=== PATIENT | male | born 1940 | race Caucasian/White ===

== ENCOUNTER 2016-04-20 08:40 | Inpatient (IN) | payer OTHER, BC ==
[~2016-04-20] VITALS: Ht 177.8 cm; Wt 104.8 kg
[2016-04-20] VITALS (15 sets, daily range): BP systolic 104–154; BP diastolic 47–65
[~2016-04-20 08:40] MED LIST: COZAAR25 MG PO; FISH OIL 1,0001 EAC7 PO; FLOMAX0.4 MG PO; FLUOXETINE HCL20 MG PO; GLIPIZIDE XL5 MG PO; JANUVIA25 M1 PO; LEVOCETIRIZINE D5 MG PO; METOPROLOL TART50 MG PO; PANTOPRAZOLE SO40 MG PO; PEPCID20 MG PO; POLY-IRON150 MG PO; PRAVASTATIN SOD80 MG PO; PRESERVISION T1 EACH PO; PROTONIX40 MG PO; REGLAN5 MG PO; TYLENOL WITH C1 EACH PO; ZETIA10 MG PO
[2016-04-20 09:28] LABS: CHLORIDE 107 mEq/L (99-109); POTASSIUM 5.2 mEq/L (3.7-5.4); SODIUM 140 mEq/L (136-147)
[2016-04-20 09:29] LABS: GLUCOSE 254 mg/dL (70-99)
[2016-04-20 09:31] LABS: ANION GAP 11 MEQ/L (2-14)
[2016-04-20 09:33] LABS: GFR ESTIMATE (CALCULATED) 30 mL/min/
[2016-04-20 09:34] LABS: UREA NITROGEN (BUN) 49 mg/dL (9-23)
[2016-04-20 09:41] LABS: TROP-I INTERPRETATION NEGATIVE; TROPONIN-I 0.03 ng/mL (0.0-0.30)
[2016-04-20 09:44] LABS: HEMATOCRIT 18.9 % (38.0-50.0); MCH 26.6 PG (29.0-34.0); MCHC 30.2 G/DL (30.0-36.0); MCV 88.3 FL (86-99); MEAN PLAT.VOLUME 11.1 uM^3 (9.0-12.4); PLATELET COUNT 192 K/uL (156-360); RBC DIS.WIDTH-CV 18.6 % (11.8-14.6); RED BLOOD COUNT 2.14 M/uL (4.00-5.50); WHITE BLOOD COUNT 7.4 K/uL (4.1-10.2)
[2016-04-20] MEDS ORDERED: APRESOLINE10 MG PO (10:46)
[2016-04-20] MEDS ORDERED: ALLOPURINOL100 MG PO (10:49)
[2016-04-20] MEDS ORDERED: COLCHICINE0.6 M1 PO (10:51)
[2016-04-20] MEDS ORDERED: TRESIBA FL100 UNIT/1 SC (10:54)
[2016-04-20] MEDS ORDERED: TYLENOL PM1 CAPLET PO (10:58)
[2016-04-20] MEDS ORDERED: GLIPIZIDE ER2.5 MG PO (11:02)
[2016-04-20] MEDS ORDERED: ALBUTEROL2.5 MG/3 M IH (11:04)
[2016-04-20] MEDS ORDERED: PROAIR HFA8.5 GM IH (11:04)
[2016-04-20 12:30] LABS: POINT-OF-CARE METER ID UU14100415
[2016-04-20 14:03] LABS: HDL CHOLESTEROL 27 MG/DL (Desirable>=40); LDL CHOLESTEROL 46 mg/dL (Desirable<100); NON-HDL CHOLESTEROL 112 mg/dL (Desirable<160); TOTAL CHOLESTEROL 139 mg/dL (Desirable<200); TRIGLYCERIDES 332 MG/DL (Normal: <150)
[2016-04-20 15:42] LABS: HEMATOCRIT 25.7 % (38.0-50.0); MCV 87.7 FL (86-99)
[2016-04-20 16:10] LABS: TROP-I INTERPRETATION NEGATIVE
[2016-04-21 01:35] LABS: HEMATOCRIT 25.4 % (38.0-50.0); MCV 87.9 FL (86-99)
[2016-04-21 04:01] VITALS: BP 128/54
[2016-04-21 07:12] LABS: INTER. NORMALIZED RATIO 1.1; PROTHROMBIN TIME 11.4 (9.2-11.2)
[2016-04-21 07:19] LABS: HEMATOCRIT 25.2 % (38.0-50.0); MCH 27.1 PG (29.0-34.0); MCHC 31.3 G/DL (30.0-36.0); MCV 86.6 FL (86-99); MEAN PLAT.VOLUME 10.8 uM^3 (9.0-12.4); PLATELET COUNT 146 K/uL (156-360); RBC DIS.WIDTH-CV 17.9 % (11.8-14.6); RBC DIS.WIDTH-SD 56.2 % (39-53); RED BLOOD COUNT 2.91 M/uL (4.00-5.50); WHITE BLOOD COUNT 5.9 K/uL (4.1-10.2)
[2016-04-21 07:22] LABS: ANION GAP 7 MEQ/L (2-14); CHLORIDE 104 MEQ/L (99-109); GFR ESTIMATE (CALCULATED) 31 mL/min/; GLUCOSE 146 mg/dL (70-99); POTASSIUM 4.6 MEQ/L (3.7-5.4); SAMPLE HEMOLYSIS CHECK 0; SAMPLE ICTERIC CHECK 0; SAMPLE LIPEMIA CHECK 0; SODIUM 139 MEQ/L (136-147); UREA NITROGEN (BUN) 37 mg/dL (9-23)
[2016-04-21 07:33] VITALS: BP 115/56
[2016-04-21 07:58] LABS: POINT-OF-CARE USER ID ENVKC36
[2016-04-21 11:29] VITALS: BP 111/56
[2016-04-21 11:34] LABS: POINT-OF-CARE METER ID UU13113698; POINT-OF-CARE USER ID ENVKC36
[2016-04-21 16:36] LABS: POINT-OF-CARE METER ID UU13113819
[2016-04-21 17:16] VITALS: BP 134/62
[2016-04-21 19:30] VITALS: BP 149/65
[2016-04-21 21:05] LABS: HEMATOCRIT 28.1 % (38.0-50.0); MCV 87.3 FL (86-99)
[2016-04-21 21:36] LABS: TROP-I INTERPRETATION INDETERMINATE; TROPONIN-I 0.31 ng/mL (0.0-0.30)
[2016-04-21 23:21] VITALS: BP 118/65
[2016-04-22 04:00] VITALS: BP 116/73
[2016-04-22 08:00] VITALS: BP 143/66
[2016-04-22 09:44] LABS: HEMATOCRIT 26.6 % (38.0-50.0); MCH 27.1 PG (29.0-34.0); MCHC 31.6 G/DL (30.0-36.0); MCV 85.8 FL (86-99); PLATELET COUNT 143 K/uL (156-360); RBC DIS.WIDTH-CV 17.8 % (11.8-14.6); RBC DIS.WIDTH-SD 55.4 % (39-53); WHITE BLOOD COUNT 4.4 K/uL (4.1-10.2)
[2016-04-22 09:47] LABS: EOSINOPHIL (%) 3.4 % (0-5); EOSINOPHIL COUNT 0.2 K/uL (0-0.3); IMMATURE GRANULOCYTE (%) 0.7 % (0.0-0.7); LYMPHOCYTE COUNT 0.8 K/uL (1.0-2.8); MONOCYTE (%) 6.6 % (3-12); MONOCYTE COUNT 0.3 K/uL (0-0.8); NEUTROPHIL (%) 70.6 % (45-76); NEUTROPHIL COUNT 3.1 K/uL (1.8-6.4)
[2016-04-22 10:08] LABS: ANION GAP 9 MEQ/L (2-14); CHLORIDE 104 MEQ/L (99-109); GFR ESTIMATE (CALCULATED) 33 mL/min/; GLUCOSE 171 mg/dL (70-99); POTASSIUM 4.8 MEQ/L (3.7-5.4); SAMPLE HEMOLYSIS CHECK 0; SAMPLE ICTERIC CHECK 0; SAMPLE LIPEMIA CHECK 0; SODIUM 138 MEQ/L (136-147); UREA NITROGEN (BUN) 26 mg/dL (9-23)
[2016-04-22 11:30] LABS: POINT-OF-CARE METER ID UU13113698
[2016-04-22 12:00] VITALS: BP 123/60
[2016-04-22 15:34] LABS: POINT-OF-CARE METER ID UU13113694
[2016-04-22 17:39] VITALS: BP 157/70
[2016-04-22 20:07] VITALS: BP 141/65
[2016-04-22 21:35] LABS: POINT-OF-CARE METER ID UU13113781
[2016-04-22 23:55] VITALS: BP 127/60
[2016-04-23 04:00] VITALS: BP 116/57
[2016-04-23 06:39] LABS: HEMATOCRIT 25.6 % (38.0-50.0); MCH 26.7 PG (29.0-34.0); MCHC 30.5 G/DL (30.0-36.0); MCV 87.7 FL (86-99); MEAN PLAT.VOLUME 11.5 uM^3 (9.0-12.4); PLATELET COUNT 147 K/uL (156-360); RBC DIS.WIDTH-CV 17.5 % (11.8-14.6); RBC DIS.WIDTH-SD 55.8 % (39-53); RED BLOOD COUNT 2.92 M/uL (4.00-5.50); WHITE BLOOD COUNT 5.3 K/uL (4.1-10.2)
[2016-04-23 06:58] LABS: EOSINOPHIL (%) 3.6 % (0-5); EOSINOPHIL COUNT 0.2 K/uL (0-0.3); IMMATURE GRANULOCYTE (%) 0.4 % (0.0-0.7); LYMPHOCYTE COUNT 0.9 K/uL (1.0-2.8); MONOCYTE (%) 7.3 % (3-12); MONOCYTE COUNT 0.4 K/uL (0-0.8); NEUTROPHIL (%) 71.9 % (45-76); NEUTROPHIL COUNT 3.8 K/uL (1.8-6.4)
[2016-04-23 07:01] LABS: ANION GAP 9 MEQ/L (2-14); CHLORIDE 109 MEQ/L (99-109); GFR ESTIMATE (CALCULATED) 35 mL/min/; GLUCOSE 133 mg/dL (70-99); POTASSIUM 3.9 MEQ/L (3.7-5.4); SAMPLE HEMOLYSIS CHECK 0; SAMPLE ICTERIC CHECK 0; SAMPLE LIPEMIA CHECK 0; SODIUM 140 MEQ/L (136-147); UREA NITROGEN (BUN) 22 mg/dL (9-23)
[2016-04-23 07:46] LABS: INTACT PARATHYROID HORMONE 121 pg/mL (10-69)
[2016-04-23 07:50] VITALS: BP 128/60
[2016-04-23] MEDS ORDERED: ERGOCALCIF50000 UNIT PO (11:51)
[2016-04-23] MEDS ORDERED: PROTONIX40 MG PO (11:52)
== END 2016-04-23 13:06 | disposition home or self-care (01) | DRG 812 ==
LOC: EME 08:40 → EDOF 10:17 → 4EAST 10:17
PROVIDERS: Internal Medicine; Internal Medicine Gastroenterology; Student in an Organized Health Care Education/Training Program
PROC: 30233N1 Transfusion of Nonautologous Red Blood Cells into Peripheral Vein, Percutaneous Approach (ICD-10-PCS; principal; 2016-04-20)
PROC: 0DB68ZX Excision of Stomach, Via Natural or Artificial Opening Endoscopic, Diagnostic (ICD-10-PCS; 2016-04-21)
PROC: 0DBH8ZX Excision of Cecum, Via Natural or Artificial Opening Endoscopic, Diagnostic (ICD-10-PCS; 2016-04-22)
DX: D62 Acute posthemorrhagic anemia (principal); I24.8 Other forms of acute ischemic heart disease; K92.2 Gastrointestinal hemorrhage, unspecified; N25.81 Secondary hyperparathyroidism of renal origin; F32.9 Major depressive disorder, single episode, unspecified; K21.9 Gastro-esophageal reflux disease without esophagitis; I12.9 Hypertensive chronic kidney disease with stage 1 through stage 4 chronic kidney disease, or unspecified chronic kidney disease; E11.22 Type 2 diabetes mellitus with diabetic chronic kidney disease; N18.3 Chronic kidney disease, stage 3 (moderate); R13.10 Dysphagia, unspecified; R07.9 Chest pain, unspecified; J44.9 Chronic obstructive pulmonary disease, unspecified; G89.29 Other chronic pain; I25.10 Atherosclerotic heart disease of native coronary artery without angina pectoris; Z79.4 Long term (current) use of insulin; K44.9 Diaphragmatic hernia without obstruction or gangrene; K29.80 Duodenitis without bleeding; D12.0 Benign neoplasm of cecum; R94.31 Abnormal electrocardiogram [ECG] [EKG]; R19.7 Diarrhea, unspecified; D50.9 Iron deficiency anemia, unspecified; R79.89 Other specified abnormal findings of blood chemistry; R19.5 Other fecal abnormalities; D13.1 Benign neoplasm of stomach; K64.4 Residual hemorrhoidal skin tags; K64.8 Other hemorrhoids; Z87.891 Personal history of nicotine dependence; Z95.5 Presence of coronary angioplasty implant and graft; Z95.1 Presence of aortocoronary bypass graft; K57.30 Diverticulosis of large intestine without perforation or abscess without bleeding
CPT/HCPCS: 71020; 80048; 80061; 80069; 82306; 82948; 83970; 84484; 85014; 85018; 85025; 85027; 85610; 86850; 86900; 86901; 86920; 88305; 88342 TC; 93005; 99202; 99281; 99285; C9113; J1815; J1940; J2250; J2270; J7030; P9016

== ENCOUNTER 2016-06-30 11:28 | Observation (INO) | payer OTHER, BC ==
[~2016-06-30] VITALS: Ht 177.8 cm; Wt 104.0 kg
[~2016-06-30 11:28] MED LIST changes: +ALBUTEROL2.5 MG/3 M IH; +ALLOPURINOL100 MG PO; +APRESOLINE10 MG PO; +COLCHICINE0.6 M1 PO; +ERGOCALCIF50000 UNIT PO; +GLIPIZIDE ER2.5 MG PO; +PROAIR HFA8.5 GM IH; +TRESIBA FL100 UNIT/1 SC; +TYLENOL PM1 CAPLET PO
[2016-06-30 12:38] LABS: EOSINOPHIL (%) 3.9 % (0-5); EOSINOPHIL COUNT 0.2 K/uL (0-0.3); HEMATOCRIT 25.9 % (38.0-50.0); IMMATURE GRANULOCYTE (%) 1.8 % (0.0-0.7); IMMATURE GRANULOCYTE COUNT 0.1 K/uL; INSTRUMENT ABS NEUTROPHIL CT 3.9 K/uL; LYMPHOCYTE COUNT 0.6 K/uL (1.0-2.8); MCH 28.7 PG (29.0-34.0); MCHC 29.7 G/DL (30.0-36.0); MCV 96.6 FL (86-99); MEAN PLAT.VOLUME 10.3 uM^3 (9.0-12.4); MONOCYTE (%) 6.3 % (3-12); MONOCYTE COUNT 0.3 K/uL (0-0.8); NEUTROPHIL (%) 75.1 % (45-76); NEUTROPHIL COUNT 3.9 K/uL (1.8-6.4); PLATELET COUNT 186 K/uL (156-360); RBC DIS.WIDTH-SD 67.9 % (39-53); RED BLOOD COUNT 2.68 M/uL (4.00-5.50); WHITE BLOOD COUNT 5.1 K/uL (4.1-10.2)
[2016-06-30 12:41] LABS: CHLORIDE 113 mEq/L (99-109); POTASSIUM 5.1 mEq/L (3.7-5.4); SODIUM 141 mEq/L (136-147)
[2016-06-30 12:44] LABS: GLUCOSE 207 mg/dL (70-99)
[2016-06-30 12:45] LABS: ANION GAP 9 MEQ/L (2-14)
[2016-06-30 12:46] LABS: TOTAL BILIRUBIN 0.4 mg/dL (0.0-1.0)
[2016-06-30 12:47] LABS: ALKALINE PHOSPHATASE 65 IU/L (3-129); GFR ESTIMATE (CALCULATED) 33 mL/min/
[2016-06-30 12:48] LABS: UREA NITROGEN (BUN) 33 mg/dL (9-23)
[2016-06-30 12:50] LABS: CREATINE KINASE 35 IU/L (1-294); TOTAL CK 35 IU/L (1-294)
[2016-06-30 12:51] LABS: TROP-I INTERPRETATION NEGATIVE; TROPONIN-I < 0.01 ng/mL (0.0-0.30)
[2016-06-30 12:56] LABS: CK-MB 0.7 ng/mL (0.0-4.9)
[2016-06-30] MEDS ORDERED: TYLENOL REGULA325 MG PO (16:15)
[2016-06-30] MEDS ORDERED: PROTONIX40 MG PO (16:18)
[2016-06-30] MEDS ORDERED: NITROSTAT0.4 MG SL (16:19)
[2016-06-30] MEDS ORDERED: IMDUR60 MG PO (16:19)
[2016-06-30] MEDS ORDERED: ROCALTROL0.25 MCG PO (16:19)
[2016-06-30] MEDS ORDERED: VITAMIN D32000 UNI1 PO (16:20)
[2016-06-30] MEDS ORDERED: LOPRESSOR50 MG PO (16:37)
[2016-06-30 20:40] LABS: ADD MIUA? NO; BILIRUBIN NEGATIVE; BLOOD NEGATIVE; COLOR YELLOW ((YELLOW)); GLUCOSE (STRIP) 50; KETONES NEGATIVE; LEUKOCYTES NEGATIVE; NITRITE NEGATIVE; PROTEIN (STRIP) NEGATIVE; SPECIFIC GRAVITY 1.015 (1.000-1.030); UCUL ADDED? NO; UROBILINOGEN 0.2 MG/DL (0.2-1.0)
[2016-06-30 22:05] LABS: TROP-I INTERPRETATION NEGATIVE; TROPONIN-I < 0.01 ng/mL (0.0-0.30)
[2016-06-30 23:00] VITALS: BP 163/71
[2016-07-01] VITALS (8 sets, daily range): BP systolic 124–177; BP diastolic 62–71
[2016-07-01 03:08] LABS: TROP-I INTERPRETATION NEGATIVE; TROPONIN-I 0.02 ng/mL (0.0-0.30)
[2016-07-01 10:04] LABS: HEMATOCRIT 29.1 % (38.0-50.0); MCH 28.3 PG (29.0-34.0); MCHC 29.9 G/DL (30.0-36.0); MCV 94.8 FL (86-99); MEAN PLAT.VOLUME 10.7 uM^3 (9.0-12.4); PLATELET COUNT 165 K/uL (156-360); RBC DIS.WIDTH-CV 19.9 % (11.8-14.6); RBC DIS.WIDTH-SD 68.7 % (39-53); RED BLOOD COUNT 3.07 M/uL (4.00-5.50); WHITE BLOOD COUNT 4.6 K/uL (4.1-10.2)
[2016-07-01 10:18] LABS: ANION GAP 10 MEQ/L (2-14); CHLORIDE 108 MEQ/L (99-109); GFR ESTIMATE (CALCULATED) 35 mL/min/; GLUCOSE 198 mg/dL (70-99); POTASSIUM 4.7 MEQ/L (3.7-5.4); SAMPLE HEMOLYSIS CHECK 0; SAMPLE ICTERIC CHECK 0; SAMPLE LIPEMIA CHECK 0; SODIUM 141 MEQ/L (136-147); UREA NITROGEN (BUN) 29 mg/dL (9-23)
[2016-07-01 12:29] LABS: POINT-OF-CARE METER ID UU13113700
== END 2016-07-01 17:30 | disposition home or self-care (01) ==
LOC: EME 11:28 → EDOF 19:55 → 5WEST 19:55
PROVIDERS: Emergency Medicine; Hospitalist; Internal Medicine
PROC: 30233N1 Transfusion of Nonautologous Red Blood Cells into Peripheral Vein, Percutaneous Approach (ICD-10-PCS; principal; 2016-07-01)
DX: R07.9 Chest pain, unspecified (principal); I71.02 Dissection of abdominal aorta; I12.9 Hypertensive chronic kidney disease with stage 1 through stage 4 chronic kidney disease, or unspecified chronic kidney disease; N18.3 Chronic kidney disease, stage 3 (moderate); D50.9 Iron deficiency anemia, unspecified; E11.9 Type 2 diabetes mellitus without complications; E78.5 Hyperlipidemia, unspecified; I25.10 Atherosclerotic heart disease of native coronary artery without angina pectoris; Z95.5 Presence of coronary angioplasty implant and graft; Z95.1 Presence of aortocoronary bypass graft; Z79.4 Long term (current) use of insulin; Z96.652 Presence of left artificial knee joint; Z87.891 Personal history of nicotine dependence
CPT/HCPCS: 71020; 71555; 74185; 80048; 80053; 81003; 82550; 82553; 82948; 84484; 85025; 85027; 86900; 86901; 86920; 93005; 99281; 99285; G0378; J1650; J1940; P9016

== ENCOUNTER 2016-07-16 11:39 | Inpatient (IN) | payer OTHER, BC ==
[2016-07-16] VITALS (29 sets, daily range): BP systolic 121–192; BP diastolic 47–91
[~2016-07-16] VITALS: Ht 177.8 cm; Wt 106.7 kg
[~2016-07-16 11:39] MED LIST changes: +IMDUR60 MG PO; +LOPRESSOR50 MG PO; +NITROSTAT0.4 MG SL; +ROCALTROL0.25 MCG PO; +TYLENOL REGULA325 MG PO; +VITAMIN D32000 UNI1 PO
[2016-07-16 12:38] LABS: CHLORIDE 107 mEq/L (99-109); SODIUM 141 mEq/L (136-147)
[2016-07-16 12:40] LABS: GLUCOSE 350 mg/dL (70-99)
[2016-07-16 12:41] LABS: ANION GAP 13 MEQ/L (2-14)
[2016-07-16 12:42] LABS: TOTAL BILIRUBIN 0.4 mg/dL (0.0-1.0)
[2016-07-16 12:43] LABS: INTER. NORMALIZED RATIO 1.1; PROTHROMBIN TIME 11.4 (9.2-11.2); PTT 24.8 (25-32)
[2016-07-16 12:44] LABS: ALKALINE PHOSPHATASE 64 IU/L (3-129); GFR ESTIMATE (CALCULATED) 25 mL/min/
[2016-07-16 12:45] LABS: UREA NITROGEN (BUN) 49 mg/dL (9-23)
[2016-07-16 12:52] LABS: TROP-I INTERPRETATION NEGATIVE; TROPONIN-I 0.07 ng/mL (0.0-0.30)
[2016-07-16 13:35] LABS: HEMATOCRIT 23.5 % (38.0-50.0); MCH 25.5 PG (29.0-34.0); MCHC 28.5 G/DL (30.0-36.0); MEAN PLAT.VOLUME 11.9 uM^3 (9.0-12.4); NRBC (%) 0.3 /100 WBC (0-0); PLATELET COUNT 192 K/uL (156-360); RBC DIS.WIDTH-CV 18.5 % (11.8-14.6); RBC DIS.WIDTH-SD 59.8 % (39-53); RED BLOOD COUNT 2.63 M/uL (4.00-5.50)
[2016-07-16 13:36] LABS: MCV 89.4 FL (86-99)
[2016-07-16] MEDS ORDERED: RANITIDINE HCL150 MG PO (15:55)
[2016-07-16] MEDS ORDERED: ZYLOPRIM100 MG PO (15:56)
[2016-07-16] MEDS ORDERED: COLCRYS0.6 MG PO (15:56)
[2016-07-16] MEDS ORDERED: APRESOLINE10 MG PO (15:57)
[2016-07-16 17:14] LABS: POINT-OF-CARE METER ID UU14174217; POINT-OF-CARE USER ID 606021424
[2016-07-16 17:39] LABS: METH RESISTANT S AUREUS PCR NEGATIVE (NEGATIVE)
[2016-07-16 17:47] LABS: PROBE CHECK PASS; SPECIMEN PROCESSING CONTROL PASS
[2016-07-16 18:35] LABS: TROP-I INTERPRETATION INDETERMINATE; TROPONIN-I 0.45 ng/mL (0.0-0.30)
[2016-07-17] VITALS (28 sets, daily range): BP systolic 129–161; BP diastolic 40–75
[2016-07-17 01:00] LABS: TROP-I INTERPRETATION POSITIVE
[2016-07-17 09:28] LABS: HEMATOCRIT 27.7 % (38.0-50.0); MCH 26.5 PG (29.0-34.0); MCHC 29.6 G/DL (30.0-36.0); MCV 89.6 FL (86-99); MEAN PLAT.VOLUME 10.7 uM^3 (9.0-12.4); PLATELET COUNT 169 K/uL (156-360); RBC DIS.WIDTH-CV 17.9 % (11.8-14.6); RED BLOOD COUNT 3.09 M/uL (4.00-5.50); WHITE BLOOD COUNT 8.7 K/uL (4.1-10.2)
[2016-07-17 10:00] LABS: ANION GAP 7 MEQ/L (2-14); CHLORIDE 108 MEQ/L (99-109); SAMPLE HEMOLYSIS CHECK 2; SAMPLE ICTERIC CHECK 0; SAMPLE LIPEMIA CHECK 0; SODIUM 141 MEQ/L (136-147)
[2016-07-17 10:02] LABS: POTASSIUM 5.4 MEQ/L (3.7-5.4)
[2016-07-17 10:07] LABS: GFR ESTIMATE (CALCULATED) 30 mL/min/; GLUCOSE 189 mg/dL (70-99); UREA NITROGEN (BUN) 43 mg/dL (9-23)
[2016-07-17 11:56] LABS: POINT-OF-CARE METER ID UU14174217
[2016-07-17 15:40] LABS: HEMATOCRIT 27.1 % (38.0-50.0)
[2016-07-17 17:39] LABS: POINT-OF-CARE METER ID UU14174217
[2016-07-17 22:11] LABS: HEMATOCRIT 29.1 % (38.0-50.0)
[2016-07-18 00:27] VITALS: BP 152/69
[2016-07-18 04:03] VITALS: BP 148/56
[2016-07-18 07:26] VITALS: BP 179/77
[2016-07-18 10:01] LABS: EOSINOPHIL COUNT 0.4 K/uL (0-0.3); HEMATOCRIT 29.5 % (38.0-50.0); IMMATURE GRANULOCYTE (%) 1.2 % (0.0-0.7); IMMATURE GRANULOCYTE COUNT 0.1 K/uL; INSTRUMENT ABS NEUTROPHIL CT 5.6 K/uL; LYMPHOCYTE COUNT 0.9 K/uL (1.0-2.8); MCH 27.2 PG (29.0-34.0); MCHC 30.8 G/DL (30.0-36.0); MCV 88.3 FL (86-99); MEAN PLAT.VOLUME 10.5 uM^3 (9.0-12.4); MONOCYTE (%) 8.1 % (3-12); MONOCYTE COUNT 0.6 K/uL (0-0.8); NEUTROPHIL (%) 73.9 % (45-76); NEUTROPHIL COUNT 5.6 K/uL (1.8-6.4); PLATELET COUNT 167 K/uL (156-360); RBC DIS.WIDTH-CV 17.5 % (11.8-14.6); RBC DIS.WIDTH-SD 56.3 % (39-53); RED BLOOD COUNT 3.34 M/uL (4.00-5.50); WHITE BLOOD COUNT 7.6 K/uL (4.1-10.2)
[2016-07-18 10:28] LABS: ANION GAP 8 MEQ/L (2-14); CHLORIDE 105 MEQ/L (99-109); GFR ESTIMATE (CALCULATED) 31 mL/min/; POTASSIUM 4.4 MEQ/L (3.7-5.4); SAMPLE HEMOLYSIS CHECK 0; SAMPLE ICTERIC CHECK 0; SAMPLE LIPEMIA CHECK 0; SODIUM 135 MEQ/L (136-147); UREA NITROGEN (BUN) 44 mg/dL (9-23)
[2016-07-18 10:30] LABS: GLUCOSE 291 mg/dL (70-99)
[2016-07-18 12:02] VITALS: BP 162/70
[2016-07-18 15:43] LABS: TROP-I INTERPRETATION POSITIVE; TROPONIN-I 0.97 ng/mL (0.0-0.30)
[2016-07-18 17:00] VITALS: BP 154/68
[2016-07-18 19:39] VITALS: BP 167/71
[2016-07-18 21:34] LABS: TROP-I INTERPRETATION POSITIVE; TROPONIN-I 0.84 ng/mL (0.0-0.30)
[2016-07-19 00:55] VITALS: BP 143/60
[2016-07-19 04:52] VITALS: BP 165/68
[2016-07-19 07:39] LABS: POINT-OF-CARE METER ID UU14174216; POINT-OF-CARE USER ID NUTSLF44
[2016-07-19 08:45] VITALS: BP 195/73
[2016-07-19 09:40] LABS: HEMATOCRIT 32.1 % (38.0-50.0); MCH 26.8 PG (29.0-34.0); MCHC 30.5 G/DL (30.0-36.0); MCV 87.9 FL (86-99); MEAN PLAT.VOLUME 10.5 uM^3 (9.0-12.4); PLATELET COUNT 167 K/uL (156-360); RBC DIS.WIDTH-CV 17.5 % (11.8-14.6); RBC DIS.WIDTH-SD 56.6 % (39-53); RED BLOOD COUNT 3.65 M/uL (4.00-5.50); WHITE BLOOD COUNT 6.6 K/uL (4.1-10.2)
[2016-07-19 11:27] LABS: POINT-OF-CARE USER ID NUTSLF44
[2016-07-19 11:30] VITALS: BP 140/62
[2016-07-19 14:55] VITALS: BP 151/67
[2016-07-19 15:30] LABS: POINT-OF-CARE METER ID UU13113694; POINT-OF-CARE USER ID OPEBLP59
[2016-07-19 21:00] VITALS: BP 145/65
[2016-07-20 00:36] VITALS: BP 147/64
[2016-07-20 05:25] VITALS: BP 160/65
[2016-07-20 06:44] LABS: EOSINOPHIL (%) 5.8 % (0-5); EOSINOPHIL COUNT 0.4 K/uL (0-0.3); HEMATOCRIT 30.1 % (38.0-50.0); IMMATURE GRANULOCYTE (%) 1.2 % (0.0-0.7); IMMATURE GRANULOCYTE COUNT 0.1 K/uL; INSTRUMENT ABS NEUTROPHIL CT 4.4 K/uL; LYMPHOCYTE COUNT 1.1 K/uL (1.0-2.8); MCH 26.5 PG (29.0-34.0); MCHC 30.2 G/DL (30.0-36.0); MCV 87.8 FL (86-99); MEAN PLAT.VOLUME 11.1 uM^3 (9.0-12.4); MONOCYTE (%) 8.1 % (3-12); MONOCYTE COUNT 0.5 K/uL (0-0.8); NEUTROPHIL (%) 67.1 % (45-76); NEUTROPHIL COUNT 4.4 K/uL (1.8-6.4); PLATELET COUNT 171 K/uL (156-360); RBC DIS.WIDTH-CV 17.7 % (11.8-14.6); RBC DIS.WIDTH-SD 56.6 % (39-53); RED BLOOD COUNT 3.43 M/uL (4.00-5.50); WHITE BLOOD COUNT 6.5 K/uL (4.1-10.2)
[2016-07-20 07:21] LABS: ANION GAP 9 MEQ/L (2-14); CHLORIDE 108 MEQ/L (99-109); GFR ESTIMATE (CALCULATED) 30 mL/min/; GLUCOSE 148 mg/dL (70-99); POTASSIUM 4.5 MEQ/L (3.7-5.4); SAMPLE HEMOLYSIS CHECK 0; SAMPLE ICTERIC CHECK 0; SAMPLE LIPEMIA CHECK 0; SODIUM 142 MEQ/L (136-147); UREA NITROGEN (BUN) 42 mg/dL (9-23)
[2016-07-20 07:31] LABS: POINT-OF-CARE USER ID ENVKC36
[2016-07-20 08:15] VITALS: BP 162/68
[2016-07-20] MEDS ORDERED: LOPRESSOR50 MG PO (08:52)
[2016-07-20] MEDS ORDERED: LOSARTAN POTASS50 MG PO (08:52)
== END 2016-07-20 11:20 | disposition home or self-care (01) | DRG 311 ==
LOC: EME 11:39 → EDOF 12:56 → 4WEST 12:56 → 4EAST 12:56 → 4WEST 16:04 → 4EAST 07-17 23:10
PROVIDERS: Emergency Medicine; Internal Medicine; Internal Medicine Critical Care Medicine; Internal Medicine Gastroenterology; Internal Medicine Pulmonary Disease; Nurse Practitioner Adult Health; Physician Assistant; Student in an Organized Health Care Education/Training Program
PROC: 30233N1 Transfusion of Nonautologous Red Blood Cells into Peripheral Vein, Percutaneous Approach (ICD-10-PCS; principal; 2016-07-16)
DX: I24.8 Other forms of acute ischemic heart disease (principal); K92.2 Gastrointestinal hemorrhage, unspecified; D64.9 Anemia, unspecified; N17.9 Acute kidney failure, unspecified; I12.9 Hypertensive chronic kidney disease with stage 1 through stage 4 chronic kidney disease, or unspecified chronic kidney disease; N18.3 Chronic kidney disease, stage 3 (moderate); E11.22 Type 2 diabetes mellitus with diabetic chronic kidney disease; E78.5 Hyperlipidemia, unspecified; I25.10 Atherosclerotic heart disease of native coronary artery without angina pectoris; K21.9 Gastro-esophageal reflux disease without esophagitis; K44.9 Diaphragmatic hernia without obstruction or gangrene; M06.9 Rheumatoid arthritis, unspecified; E66.9 Obesity, unspecified; Z96.652 Presence of left artificial knee joint; Z68.34 Body mass index [BMI] 34.0-34.9, adult; I25.2 Old myocardial infarction; Z95.1 Presence of aortocoronary bypass graft; Z95.5 Presence of coronary angioplasty implant and graft; Z87.891 Personal history of nicotine dependence; Z79.4 Long term (current) use of insulin
CPT/HCPCS: 71010; 80048; 80053; 80069; 82272; 82948; 84484; 85014; 85018; 85025; 85027; 85610; 85730; 86900; 86901; 86920; 87641; 93005; 99202; 99281; 99285; C9113; J1815; J1940; J2270; J2405; J7030; P9016

== ENCOUNTER 2016-09-23 20:30 | Inpatient (IN) | payer OTHER, BC ==
[~2016-09-23] VITALS: Ht 177.8 cm; Wt 110.0 kg
[~2016-09-23 20:30] MED LIST changes: +COLCRYS0.6 MG PO; +LOSARTAN POTASS50 MG PO; +RANITIDINE HCL150 MG PO; +ZYLOPRIM100 MG PO
[2016-09-23 21:12] LABS: HEMATOCRIT 24.2 % (38.0-50.0); MCH 30.1 PG (29.0-34.0); MCHC 31.8 G/DL (30.0-36.0); MCV 94.5 FL (86-99); MEAN PLAT.VOLUME 9.5 uM^3 (9.0-12.4); NRBC (%) 1.6 /100 WBC (0-0); PLATELET COUNT 149 K/uL (156-360); RBC DIS.WIDTH-CV 19.8 % (11.8-14.6); RBC DIS.WIDTH-SD 66.2 % (39-53); WHITE BLOOD COUNT 5.5 K/uL (4.1-10.2)
[2016-09-23 21:21] LABS: RED BLOOD COUNT 2.56 M/uL (4.00-5.50)
[2016-09-23 21:26] LABS: CHLORIDE 116 mEq/L (99-109); POTASSIUM 5.3 mEq/L (3.7-5.4); SODIUM 141 mEq/L (136-147)
[2016-09-23 21:28] LABS: GLUCOSE 204 mg/dL (70-99)
[2016-09-23 21:30] LABS: ANION GAP 9 MEQ/L (2-14)
[2016-09-23 21:32] LABS: GFR ESTIMATE (CALCULATED) 28 mL/min/
[2016-09-23 21:33] LABS: UREA NITROGEN (BUN) 63 mg/dL (9-23)
[2016-09-23 21:36] LABS: TROP-I INTERPRETATION NEGATIVE; TROPONIN-I < 0.01 ng/mL (0.0-0.30)
[2016-09-23 22:12] LABS: INTER. NORMALIZED RATIO 1.1; PTT 24.5 (25-32)
[2016-09-23] MEDS ORDERED: COZAAR50 MG PO (23:17)
[2016-09-23] MEDS ORDERED: CILOSTAZOL50 MG PO (23:21)
[2016-09-23] MEDS ORDERED: STOOL SOFTENER100 MG PO (23:22)
[2016-09-23] MEDS ORDERED: NOVOLOG 10100 UNITS/ SC (23:22)
[2016-09-23 23:36] VITALS: BP 159/53
[2016-09-23 23:50] VITALS: BP 154/45
[2016-09-24] VITALS (10 sets, daily range): BP systolic 125–176; BP diastolic 47–89
[2016-09-24 07:53] LABS: POINT-OF-CARE METER ID UU14174225
[2016-09-24 09:51] LABS: HEMATOCRIT 29.1 % (38.0-50.0); MCV 93.9 FL (86-99); MEAN PLAT.VOLUME 10.4 uM^3 (9.0-12.4); NRBC (%) 0.7 /100 WBC (0-0); PLATELET COUNT 138 K/uL (156-360); RBC DIS.WIDTH-CV 19.4 % (11.8-14.6); RBC DIS.WIDTH-SD 65.1 % (39-53); WHITE BLOOD COUNT 5.7 K/uL (4.1-10.2)
[2016-09-24 10:50] LABS: TROP-I INTERPRETATION NEGATIVE; TROPONIN-I < 0.01 ng/mL (0.0-0.30)
[2016-09-24 11:51] LABS: POINT-OF-CARE METER ID UU14188625
[2016-09-24 12:00] LABS: ALKALINE PHOSPHATASE 68 IU/L (3-129); ANION GAP 11 MEQ/L (2-14); CHLORIDE 115 MEQ/L (99-109); GFR ESTIMATE (CALCULATED) 33 mL/min/; GLUCOSE 163 mg/dL (70-99); IRON 40 MCG/DL (35-150); POTASSIUM 4.9 MEQ/L (3.7-5.4); SAMPLE HEMOLYSIS CHECK 0; SAMPLE ICTERIC CHECK 0; SAMPLE LIPEMIA CHECK 0; SODIUM 143 MEQ/L (136-147); TOTAL BILIRUBIN 0.4 MG/DL (0.0-1.0); UREA NITROGEN (BUN) 54 mg/dL (9-23)
[2016-09-24 12:41] LABS: FERRITIN 88 NG/ML (22-322)
[2016-09-24 17:49] LABS: C DIFF TOXIN NEGATIVE (NEGATIVE)
[2016-09-24 17:52] LABS: PROBE CHECK PASS; SPECIMEN PROCESSING CONTROL PASS
[2016-09-24 18:04] LABS: HEMATOCRIT 29.3 % (38.0-50.0); MCH 30.5 PG (29.0-34.0); MCHC 32.1 G/DL (30.0-36.0); MCV 95.1 FL (86-99); NRBC (%) 0.6 /100 WBC (0-0); PLATELET COUNT 142 K/uL (156-360); RBC DIS.WIDTH-CV 19.6 % (11.8-14.6); RBC DIS.WIDTH-SD 66.3 % (39-53); RED BLOOD COUNT 3.08 M/uL (4.00-5.50); WHITE BLOOD COUNT 5.1 K/uL (4.1-10.2)
[2016-09-24 22:36] LABS: INTERNAL CONTROL VALID? YES
[2016-09-24 23:34] LABS: POINT-OF-CARE METER ID UU14188625
[2016-09-24 23:37] LABS: ADD MIUA? YES; BILIRUBIN NEGATIVE; BLOOD MODERATE; COLOR YELLOW ((YELLOW)); GLUCOSE (STRIP) 50; KETONES NEGATIVE; LEUKOCYTES NEGATIVE; NITRITE NEGATIVE; PROTEIN (STRIP) NEGATIVE; SPECIFIC GRAVITY 1.012 (1.000-1.030); UROBILINOGEN 0.2 MG/DL (0.2-1.0)
[2016-09-24 23:46] LABS: BACTERIA NONE SEEN /HPF; EPITHELIAL CELLS NONE SEEN /HPF; MUCUS TRACE /LPF; UCUL ADDED? NO; WHITE BLOOD CELLS 0-5 /HPF (0-5)
[2016-09-25 00:22] VITALS: BP 170/69
[2016-09-25 04:14] VITALS: BP 162/55
[2016-09-25 06:51] LABS: EOSINOPHIL (%) 4.9 % (0-5); EOSINOPHIL COUNT 0.2 K/uL (0-0.3); IMMATURE GRANULOCYTE (%) 2.7 % (0.0-0.7); IMMATURE GRANULOCYTE COUNT 0.1 K/uL; INSTRUMENT ABS NEUTROPHIL CT 3.1 K/uL; LYMPHOCYTE COUNT 1.1 K/uL (1.0-2.8); MCH 30.6 PG (29.0-34.0); MCHC 32.8 G/DL (30.0-36.0); MCV 93.5 FL (86-99); MEAN PLAT.VOLUME 10.3 uM^3 (9.0-12.4); MONOCYTE COUNT 0.3 K/uL (0-0.8); NEUTROPHIL (%) 63.1 % (45-76); NEUTROPHIL COUNT 3.1 K/uL (1.8-6.4); NRBC (%) 0.4 /100 WBC (0-0); PLATELET COUNT 121 K/uL (156-360); RBC DIS.WIDTH-CV 19.4 % (11.8-14.6); RBC DIS.WIDTH-SD 64.2 % (39-53); WHITE BLOOD COUNT 4.9 K/uL (4.1-10.2)
[2016-09-25 07:13] LABS: ALKALINE PHOSPHATASE 74 IU/L (3-129); ANION GAP 8 MEQ/L (2-14); CHLORIDE 113 MEQ/L (99-109); DIRECT BILIRUBIN 0.1 mg/dL (0.0-0.3); GFR ESTIMATE (CALCULATED) 33 mL/min/; GLUCOSE 130 mg/dL (70-99); POTASSIUM 4.7 MEQ/L (3.7-5.4); SAMPLE HEMOLYSIS CHECK 0; SAMPLE ICTERIC CHECK 0; SAMPLE LIPEMIA CHECK 0; SODIUM 141 MEQ/L (136-147); TOTAL BILIRUBIN 0.4 MG/DL (0.0-1.0); UREA NITROGEN (BUN) 38 mg/dL (9-23)
[2016-09-25 08:27] VITALS: BP 173/69
== END 2016-09-25 11:35 | disposition home or self-care (01) | DRG 812 ==
LOC: EME 20:30 → EDOF 23:34 → 5SOUTH 23:34
PROVIDERS: Emergency Medicine; Hospitalist; Specialist
PROC: 30233N1 Transfusion of Nonautologous Red Blood Cells into Peripheral Vein, Percutaneous Approach (ICD-10-PCS; principal; 2016-09-23)
DX: D50.0 Iron deficiency anemia secondary to blood loss (chronic) (principal); N17.9 Acute kidney failure, unspecified; K92.1 Melena; K92.0 Hematemesis; I12.9 Hypertensive chronic kidney disease with stage 1 through stage 4 chronic kidney disease, or unspecified chronic kidney disease; E11.22 Type 2 diabetes mellitus with diabetic chronic kidney disease; N18.4 Chronic kidney disease, stage 4 (severe); I25.10 Atherosclerotic heart disease of native coronary artery without angina pectoris; J44.9 Chronic obstructive pulmonary disease, unspecified; E78.5 Hyperlipidemia, unspecified; F32.9 Major depressive disorder, single episode, unspecified; F41.9 Anxiety disorder, unspecified; E66.9 Obesity, unspecified; I25.2 Old myocardial infarction; K21.9 Gastro-esophageal reflux disease without esophagitis; K42.9 Umbilical hernia without obstruction or gangrene; M10.9 Gout, unspecified; N13.8 Other obstructive and reflux uropathy; N40.1 Benign prostatic hyperplasia with lower urinary tract symptoms; Z68.34 Body mass index [BMI] 34.0-34.9, adult; Z72.0 Tobacco use; Z79.4 Long term (current) use of insulin; Z82.49 Family history of ischemic heart disease and other diseases of the circulatory system; Z95.1 Presence of aortocoronary bypass graft; Z95.5 Presence of coronary angioplasty implant and graft; Z96.652 Presence of left artificial knee joint
CPT/HCPCS: 36415; 71020; 80048; 80053; 80076; 81003; 82272; 82607; 82728; 82746; 82948; 83540; 84466; 84484; 85025; 85027; 85610; 85730; 86900; 86901; 86920; 87493; 93005; 99281; 99285; C9113; J1815; J2270; J2405; J7042; P9016

== ENCOUNTER 2017-05-18 22:06 | Inpatient (IN) | payer OTHER, BC ==
[~2017-05-18] VITALS: Ht 177.8 cm; Wt 109.0 kg
[~2017-05-18 22:06] MED LIST changes: +CILOSTAZOL50 MG PO; +METOPROLOL TART75 MG PO; +MULTI-VITAMIN1 EAC4 PO; +NOVOLOG 10100 UNITS/ SC; +NOVOLOG PE100 UNITS/ SC; +STOOL SOFTENER100 MG PO; +VICTOZA 2-0.6 MG/0.1 SC; +VYTORIN 10/11 TABLET PO
[2017-05-19] VITALS (10 sets, daily range): BP systolic 90–144; BP diastolic 37–60
[2017-05-19] MEDS ORDERED: PROCRIT40000 UNI1 SC (09:07)
[2017-05-19 14:40] LABS: TROP-I INTERPRETATION NEGATIVE; TROPONIN-I < 0.01 ng/mL (0.0-0.30)
[2017-05-19 14:59] LABS: BASE EXCESS -8.5 mEq/L (-3 to +3); BICARBONATE 18.8 mEq/L (22-26); CARBOXY HGB 1.6 % (0-5); METHEMOGLOBIN 1.5 % (0-1.5); PCO2 46 mm Hg (35-45); PO2 108 mm Hg (80-100)
[2017-05-19 15:01] LABS: COMMENTS - BLOOD GASES A+C+; O2 FLOW 15 L/MIN; SITE LR; pH 7.22 (7.35-7.45)
[2017-05-19 15:02] LABS: DEVICE HOME CPAP
[2017-05-19 15:03] LABS: HEMATOCRIT 31.7 % (38.0-50.0); HEMOGLOBIN 9.4 G/DL (12.5-16.6); MCH 25.9 PG (29.0-34.0); MCHC 29.7 G/DL (30.0-36.0); MCV 87.3 FL (86-99); NRBC (%) 0.4 /100 WBC (0-0); PLATELET COUNT 196 K/uL (156-360); RBC DIS.WIDTH-SD 56.5 % (39-53); RED BLOOD COUNT 3.63 M/uL (4.00-5.50); WHITE BLOOD COUNT 11.9 K/uL (4.1-10.2)
[2017-05-19 15:32] LABS: CHLORIDE 112 MEQ/L (99-109); CREATININE 2.4 MG/DL (0.6-1.3); GFR ESTIMATE (CALCULATED) 28 mL/min/ (58.99-99999); GLUCOSE 213 mg/dL (70-99); MAGNESIUM 2.8 mg/dl (1.3-2.7); SODIUM 138 MEQ/L (136-147); UREA NITROGEN (BUN) 43 mg/dL (9-23)
[2017-05-19 15:40] LABS: POTASSIUM 6.3 MEQ/L (3.7-5.4)
[2017-05-19 17:14] LABS: CHLORIDE 107 MEQ/L (99-109); CREATININE 2.4 MG/DL (0.6-1.3); GFR ESTIMATE (CALCULATED) 28 mL/min/ (58.99-99999); GLUCOSE 182 mg/dL (70-99); POTASSIUM 5.7 MEQ/L (3.7-5.4); SODIUM 134 MEQ/L (136-147); UREA NITROGEN (BUN) 44 mg/dL (9-23)
[2017-05-20] VITALS (14 sets, daily range): BP systolic 116–163; BP diastolic 47–68
[2017-05-20 06:16] LABS: HEMATOCRIT 26.4 % (38.0-50.0); HEMOGLOBIN 7.8 G/DL (12.5-16.6); MCH 25.2 PG (29.0-34.0); MCHC 29.5 G/DL (30.0-36.0); MCV 85.4 FL (86-99); PLATELET COUNT 145 K/uL (156-360); RBC DIS.WIDTH-CV 17.6 % (11.8-14.6); RBC DIS.WIDTH-SD 54.1 % (39-53); RED BLOOD COUNT 3.09 M/uL (4.00-5.50); WHITE BLOOD COUNT 7.9 K/uL (4.1-10.2)
[2017-05-20 06:38] LABS: CHLORIDE 109 MEQ/L (99-109); CREATININE 2.7 MG/DL (0.6-1.3); GFR ESTIMATE (CALCULATED) 25 mL/min/ (58.99-99999); GLUCOSE 123 mg/dL (70-99); POTASSIUM 5.2 MEQ/L (3.7-5.4); UREA NITROGEN (BUN) 44 mg/dL (9-23)
[2017-05-20 06:39] LABS: SODIUM 141 MEQ/L (136-147)
[2017-05-20 11:31] LABS: TROP-I INTERPRETATION NEGATIVE; TROPONIN-I 0.03 ng/mL (0.0-0.30)
[2017-05-20 11:49] LABS: BASOPHIL (%) 0.2 % (0-1); EOSINOPHIL (%) 1.1 % (0-5); EOSINOPHIL COUNT 0.1 K/uL (0-0.3); HEMATOCRIT 26.9 % (38.0-50.0); HEMOGLOBIN 7.9 G/DL (12.5-16.6); LYMPHOCYTE (%) 12.7 % (15-42); LYMPHOCYTE COUNT 1.1 K/uL (1.0-2.8); MCH 25.3 PG (29.0-34.0); MCHC 29.4 G/DL (30.0-36.0); MCV 86.2 FL (86-99); MONOCYTE (%) 8.7 % (3-12); MONOCYTE COUNT 0.7 K/uL (0-0.8); NEUTROPHIL (%) 76.3 % (45-76); NEUTROPHIL COUNT 6.3 K/uL (1.8-6.4); PLATELET COUNT 163 K/uL (156-360); RBC DIS.WIDTH-CV 17.7 % (11.8-14.6); RBC DIS.WIDTH-SD 55.5 % (39-53); RED BLOOD COUNT 3.12 M/uL (4.00-5.50); WHITE BLOOD COUNT 8.3 K/uL (4.1-10.2)
[2017-05-21 06:10] LABS: BASOPHIL (%) 0.5 % (0-1); EOSINOPHIL (%) 2.4 % (0-5); EOSINOPHIL COUNT 0.2 K/uL (0-0.3); HEMATOCRIT 26.6 % (38.0-50.0); HEMOGLOBIN 7.7 G/DL (12.5-16.6); IMMATURE GRANULOCYTE (%) 1.1 % (0.0-0.7); LYMPHOCYTE (%) 16.3 % (15-42); MCH 24.4 PG (29.0-34.0); MCHC 28.9 G/DL (30.0-36.0); MCV 84.4 FL (86-99); MONOCYTE (%) 9.3 % (3-12); MONOCYTE COUNT 0.6 K/uL (0-0.8); NEUTROPHIL (%) 70.4 % (45-76); NEUTROPHIL COUNT 4.3 K/uL (1.8-6.4); PLATELET COUNT 146 K/uL (156-360); RBC DIS.WIDTH-CV 17.6 % (11.8-14.6); RBC DIS.WIDTH-SD 54.2 % (39-53); RED BLOOD COUNT 3.15 M/uL (4.00-5.50); WHITE BLOOD COUNT 6.2 K/uL (4.1-10.2)
[2017-05-21 06:34] LABS: CHLORIDE 109 MEQ/L (99-109); CREATININE 2.4 MG/DL (0.6-1.3); GFR ESTIMATE (CALCULATED) 28 mL/min/ (58.99-99999); GLUCOSE 129 mg/dL (70-99); SODIUM 139 MEQ/L (136-147); UREA NITROGEN (BUN) 40 mg/dL (9-23)
[2017-05-21 07:17] VITALS: BP 136/64
[2017-05-21 12:26] VITALS: BP 140/69
[2017-05-21 15:06] VITALS: BP 149/65
[2017-05-21 19:49] VITALS: BP 160/68
[2017-05-22 00:06] VITALS: BP 138/64
[2017-05-22 03:37] VITALS: BP 129/59
[2017-05-22 07:18] VITALS: BP 159/64
[2017-05-22] MEDS ORDERED: COLACE100 MG PO (08:53)
[2017-05-22] MEDS ORDERED: PERCOCET 5/31 TABLET PO (08:53)
== END 2017-05-22 10:05 | disposition home or self-care (01) | DRG 336 ==
LOC: ENRESERV 22:06 → EDSTATUS 05-19 07:52 → 2SOUTH 05-19 07:54 → 4WEST 05-19 08:22 → 2SOUTH 05-19 08:22 → ENRESERV 05-19 14:05 → 2SOUTH 05-19 15:04 → ENRESERV 05-19 15:09 → SDC 05-19 16:25 → ENRESERV 05-19 17:10 → 4WEST 05-19 17:51 → ENRESERV 05-20 11:24 → 3EAST 05-20 12:40
PROVIDERS: Internal Medicine Cardiovascular Disease; Physician Assistant; Surgery
DX: Q43.0 Meckel's diverticulum (displaced) (hypertrophic) (principal); K66.0 Peritoneal adhesions (postprocedural) (postinfection); K42.9 Umbilical hernia without obstruction or gangrene; D50.0 Iron deficiency anemia secondary to blood loss (chronic); E87.4 Mixed disorder of acid-base balance; E87.70 Fluid overload, unspecified; E11.22 Type 2 diabetes mellitus with diabetic chronic kidney disease; E11.51 Type 2 diabetes mellitus with diabetic peripheral angiopathy without gangrene; I73.9 Peripheral vascular disease, unspecified; I44.7 Left bundle-branch block, unspecified; I12.9 Hypertensive chronic kidney disease with stage 1 through stage 4 chronic kidney disease, or unspecified chronic kidney disease; N18.3 Chronic kidney disease, stage 3 (moderate); G47.33 Obstructive sleep apnea (adult) (pediatric); K29.80 Duodenitis without bleeding; K44.9 Diaphragmatic hernia without obstruction or gangrene; K64.4 Residual hemorrhoidal skin tags; K64.8 Other hemorrhoids; K21.9 Gastro-esophageal reflux disease without esophagitis; J44.9 Chronic obstructive pulmonary disease, unspecified; I51.7 Cardiomegaly; I25.10 Atherosclerotic heart disease of native coronary artery without angina pectoris; E78.5 Hyperlipidemia, unspecified; E66.9 Obesity, unspecified; Z68.35 Body mass index [BMI] 35.0-35.9, adult; Z95.1 Presence of aortocoronary bypass graft; Z95.5 Presence of coronary angioplasty implant and graft; I25.2 Old myocardial infarction
CPT/HCPCS: 36600; 71045; 74018; 80048; 80048 91; 82803; 82948; 83735; 83880; 84484; 85025; 85027; 86850; 86900; 86901; 87641; 88302; 88305; 93005; 94640; 94640 76; 94660; 94799; 99202; J1170; J1650; J1815; J1885; J1940; J2001; J2310; J2710; J2795; J3010; J3475; J7120; S0074

== ENCOUNTER 2017-05-27 14:28 | Emergency (ER) | payer OTHER, BC ==
[~2017-05-27] VITALS: Ht 177.8 cm; Wt 109.0 kg
[~2017-05-27 14:28] MED LIST changes: +COLACE100 MG PO; +PERCOCET 5/31 TABLET PO; +PROCRIT40000 UNI1 SC
[2017-05-27 15:12] LABS: HEMATOCRIT 35.5 % (38.0-50.0); MCH 25.5 PG (29.0-34.0); MCHC 30.4 G/DL (30.0-36.0); MCV 83.7 FL (86-99); NRBC (%) 0.2 /100 WBC (0-0); RBC DIS.WIDTH-CV 17.3 % (11.8-14.6); RBC DIS.WIDTH-SD 52.7 % (39-53); WHITE BLOOD COUNT 8.3 K/uL (4.1-10.2)
[2017-05-27 15:14] LABS: HEMOGLOBIN 10.8 G/DL (12.5-16.6); PLATELET COUNT 198 K/uL (156-360); RED BLOOD COUNT 4.24 M/uL (4.00-5.50)
[2017-05-27 15:17] LABS: ALBUMIN 4.2 g/dL (3.2-4.8); CHLORIDE 110 mEq/L (99-109); POTASSIUM 4.8 mEq/L (3.7-5.4); SODIUM 142 mEq/L (136-147)
[2017-05-27 15:19] LABS: GLUCOSE 130 mg/dL (70-99); TOTAL PROTEIN 6.9 g/dL (6.4-8.3)
[2017-05-27 15:21] LABS: TOTAL BILIRUBIN 0.5 mg/dL (0.0-1.0)
[2017-05-27 15:23] LABS: ALKALINE PHOSPHATASE 92 IU/L (3-129); CREATININE 2.5 mg/dL (0.6-1.3); GFR ESTIMATE (CALCULATED) 27 mL/min/ (58.99-99999)
[2017-05-27 15:24] LABS: UREA NITROGEN (BUN) 28 mg/dL (9-23)
[2017-05-27 15:25] LABS: AST (GOT) 16 IU/L (2-34)
[2017-05-27 15:26] LABS: ALT (GPT) 15 IU/L (3-49)
[2017-05-27 20:38] LABS: APPEARANCE SL.HAZY ((CLEAR)); BILIRUBIN NEGATIVE; BLOOD NEGATIVE; COLOR YELLOW ((YELLOW)); GLUCOSE (STRIP) NEGATIVE; KETONES NEGATIVE; LEUKOCYTES TRACE; NITRITE NEGATIVE; PROTEIN (STRIP) 30; SPECIFIC GRAVITY 1.016 (1.000-1.030); UROBILINOGEN 0.2 MG/DL (0.2-1.0)
[2017-05-27 22:05] VITALS: BP 145/61
[2017-05-27 22:12] LABS: AMORPHOUS URATES CRYSTALS 2+; BACTERIA 2+ /HPF; EPITHELIAL CELLS 1+ /HPF; MUCUS 1+ /LPF; RED BLOOD CELLS NONE SEEN /HPF (0-5); UCUL ADDED? YES
== END 2017-05-27 22:12 | disposition home or self-care (01) ==
LOC: EME 14:28
DX: G89.18 Other acute postprocedural pain (principal); R10.9 Unspecified abdominal pain; J44.9 Chronic obstructive pulmonary disease, unspecified; K21.9 Gastro-esophageal reflux disease without esophagitis; D64.9 Anemia, unspecified; Z98.890 Other specified postprocedural states; N18.9 Chronic kidney disease, unspecified; F32.9 Major depressive disorder, single episode, unspecified; I25.2 Old myocardial infarction; Z95.1 Presence of aortocoronary bypass graft; Z87.891 Personal history of nicotine dependence; Z87.442 Personal history of urinary calculi
CPT/HCPCS: 74176; 80053; 81003; 85027; 87077; 87086; 87186; 99281; 99285; J2270; J2405; J7030

== ENCOUNTER → 2017-08-30 | Outpatient (CLI) | payer MEDICARE, BC | END | disposition home or self-care (01) | LOC: CDC 12:28 | DX: Z01.810 Encounter for preprocedural cardiovascular examination (principal); I70.25 Atherosclerosis of native arteries of other extremities with ulceration; R94.31 Abnormal electrocardiogram [ECG] [EKG] | CPT/HCPCS: 93000 ==

== ENCOUNTER 2017-09-12 10:39 | Inpatient (IN) | payer OTHER, BC ==
[~2017-09-12] VITALS: Ht 177.8 cm; Wt 105.9 kg
[2017-09-12] VITALS (10 sets, daily range): BP systolic 127–167; BP diastolic 59–79
[2017-09-12 11:22] LABS: HEMATOCRIT 25.7 % (38.0-50.0); HEMOGLOBIN 8.1 G/DL (12.5-16.6); MCH 27.8 PG (29.0-34.0); MCHC 31.5 G/DL (30.0-36.0); MCV 88.3 FL (86-99); NRBC (%) 0.9 /100 WBC (0-0); PLATELET COUNT 204 K/uL (156-360); RBC DIS.WIDTH-CV 18.4 % (11.8-14.6); RBC DIS.WIDTH-SD 57.9 % (39-53); RED BLOOD COUNT 2.91 M/uL (4.00-5.50)
[2017-09-12 11:34] LABS: CHLORIDE 117 mEq/L (99-109); POTASSIUM 4.5 mEq/L (3.7-5.4); SODIUM 139 mEq/L (136-147)
[2017-09-12 11:36] LABS: GLUCOSE 139 mg/dL (70-99)
[2017-09-12 11:40] LABS: CREATININE 2.5 mg/dL (0.6-1.3); GFR ESTIMATE (CALCULATED) 27 mL/min/ (58.99-99999)
[2017-09-12 11:41] LABS: UREA NITROGEN (BUN) 54 mg/dL (9-23)
[2017-09-12 11:44] LABS: TROP-I INTERPRETATION NEGATIVE; TROPONIN-I 0.02 ng/mL (0.0-0.30)
[2017-09-12] MEDS ORDERED: CILOSTAZOL50 MG PO (13:26)
[2017-09-12] MEDS ORDERED: PRESERVISION T1 EACH PO (13:26)
[2017-09-12] MEDS ORDERED: MEGA BENFOTIAMINE PO (13:31)
[2017-09-12 20:51] LABS: TROP-I INTERPRETATION NEGATIVE; TROPONIN-I 0.02 ng/mL (0.0-0.30)
[2017-09-13] VITALS (9 sets, daily range): BP systolic 124–165; BP diastolic 63–95
[2017-09-13 01:40] LABS: HEMATOCRIT 26.8 % (38.0-50.0); HEMOGLOBIN 8.5 G/DL (12.5-16.6); MCV 88.7 FL (86-99)
[2017-09-13 02:00] LABS: TROP-I INTERPRETATION NEGATIVE; TROPONIN-I 0.02 ng/mL (0.0-0.30)
[2017-09-13 07:04] LABS: HEMATOCRIT 27.7 % (38.0-50.0); HEMOGLOBIN 8.6 G/DL (12.5-16.6); MCH 27.7 PG (29.0-34.0); MCV 89.1 FL (86-99); NRBC (%) 0.4 /100 WBC (0-0); PLATELET COUNT 184 K/uL (156-360); RBC DIS.WIDTH-SD 54.5 % (39-53); RED BLOOD COUNT 3.11 M/uL (4.00-5.50); WHITE BLOOD COUNT 7.1 K/uL (4.1-10.2)
[2017-09-13 07:16] LABS: INTER. NORMALIZED RATIO 1.4
[2017-09-13 07:28] LABS: CHLORIDE 114 MEQ/L (99-109); CREATININE 2.2 MG/DL (0.6-1.3); GFR ESTIMATE (CALCULATED) 31 mL/min/ (58.99-99999); GLUCOSE 110 mg/dL (70-99); POTASSIUM 4.3 MEQ/L (3.7-5.4); SODIUM 142 MEQ/L (136-147); UREA NITROGEN (BUN) 48 mg/dL (9-23)
[2017-09-13 12:15] LABS: HEMOGLOBIN 8.8 G/DL (12.5-16.6); MCV 89.7 FL (86-99)
[2017-09-13] MEDS ORDERED: PROCRIT40000 UNI1 SQ (13:23)
[2017-09-13 18:01] LABS: HEMATOCRIT 28.8 % (38.0-50.0); MCV 88.6 FL (86-99)
[2017-09-14 03:52] VITALS: BP 145/64
[2017-09-14 06:47] LABS: HEMATOCRIT 29.8 % (38.0-50.0); HEMOGLOBIN 9.3 G/DL (12.5-16.6); MCH 27.7 PG (29.0-34.0); MCHC 31.2 G/DL (30.0-36.0); MCV 88.7 FL (86-99); PLATELET COUNT 181 K/uL (156-360); RBC DIS.WIDTH-CV 16.9 % (11.8-14.6); RBC DIS.WIDTH-SD 54.7 % (39-53); RED BLOOD COUNT 3.36 M/uL (4.00-5.50); WHITE BLOOD COUNT 6.9 K/uL (4.1-10.2)
[2017-09-14 08:55] VITALS: BP 132/60
[2017-09-14 11:54] VITALS: BP 161/74
[2017-09-14 16:18] VITALS: BP 160/69
[2017-09-14 19:30] VITALS: BP 159/78
[2017-09-15 00:30] VITALS: BP 130/65
[2017-09-15 04:55] VITALS: BP 155/68
[2017-09-15 07:53] VITALS: BP 183/78
[2017-09-15 07:58] LABS: INTER. NORMALIZED RATIO 1.4
[2017-09-15 08:19] LABS: HEMATOCRIT 32.9 % (38.0-50.0); MCHC 30.4 G/DL (30.0-36.0); MCV 88.9 FL (86-99); PLATELET COUNT 187 K/uL (156-360); RBC DIS.WIDTH-CV 17.1 % (11.8-14.6); RBC DIS.WIDTH-SD 54.9 % (39-53); WHITE BLOOD COUNT 6.8 K/uL (4.1-10.2)
[2017-09-15 08:31] LABS: ALBUMIN 4.1 G/DL (3.2-4.8); CHLORIDE 111 MEQ/L (99-109); CREATININE 2.1 MG/DL (0.6-1.3); GFR ESTIMATE (CALCULATED) 33 mL/min/ (58.99-99999); GLUCOSE 136 mg/dL (70-99); PHOSPHORUS 3.1 mg/dL (2.5-4.9); POTASSIUM 4.6 MEQ/L (3.7-5.4); SODIUM 142 MEQ/L (136-147); UREA NITROGEN (BUN) 27 mg/dL (9-23)
[2017-09-15 10:54] LABS: HEMOGLOBIN A1c (GLYCOHEMOGLOB) 5.3 % (Below 5.7)
[2017-09-15 11:00] VITALS: BP 141/65
[2017-09-15 15:14] VITALS: BP 128/70
[2017-09-15 19:25] VITALS: BP 156/67
[2017-09-16 00:16] VITALS: BP 128/71
[2017-09-16 03:41] VITALS: BP 136/62
[2017-09-16 07:40] VITALS: BP 172/72
[2017-09-16 07:44] LABS: HEMATOCRIT 30.8 % (38.0-50.0); HEMOGLOBIN 9.4 G/DL (12.5-16.6); MCH 26.9 PG (29.0-34.0); MCHC 30.5 G/DL (30.0-36.0); MCV 88.3 FL (86-99); PLATELET COUNT 196 K/uL (156-360); RBC DIS.WIDTH-CV 16.7 % (11.8-14.6); RBC DIS.WIDTH-SD 53.5 % (39-53); RED BLOOD COUNT 3.49 M/uL (4.00-5.50); WHITE BLOOD COUNT 5.7 K/uL (4.1-10.2)
[2017-09-16 09:53] LABS: CHLORIDE 111 MEQ/L (99-109); GFR ESTIMATE (CALCULATED) 35 mL/min/ (58.99-99999); GLUCOSE 200 mg/dL (70-99); POTASSIUM 4.7 MEQ/L (3.7-5.4); SODIUM 142 MEQ/L (136-147); UREA NITROGEN (BUN) 28 mg/dL (9-23)
[2017-09-16 11:56] VITALS: BP 176/77
[2017-09-22] MEDS ORDERED: CILOSTAZOL50 MG PO (11:47)
== END 2017-09-16 13:33 | disposition home or self-care (01) | DRG 378 ==
LOC: EME 10:39 → EDOF 12:37 → 4SOUTH 12:37 → ENRESERV 12:53 → 4SOUTH 14:01
PROVIDERS: Internal Medicine; Internal Medicine Gastroenterology; Student in an Organized Health Care Education/Training Program
PROC: 30233N1 Transfusion of Nonautologous Red Blood Cells into Peripheral Vein, Percutaneous Approach (ICD-10-PCS; principal; 2017-09-12)
PROC: 0DJ08ZZ Inspection of Upper Intestinal Tract, Via Natural or Artificial Opening Endoscopic (ICD-10-PCS; 2017-09-13)
PROC: 0DB68ZX Excision of Stomach, Via Natural or Artificial Opening Endoscopic, Diagnostic (ICD-10-PCS; 2017-09-13)
PROC: 0DBK8ZX Excision of Ascending Colon, Via Natural or Artificial Opening Endoscopic, Diagnostic (ICD-10-PCS; 2017-09-15)
PROC: 0DJD8ZZ Inspection of Lower Intestinal Tract, Via Natural or Artificial Opening Endoscopic (ICD-10-PCS; 2017-09-15)
DX: K92.1 Melena (principal); D50.0 Iron deficiency anemia secondary to blood loss (chronic); I24.8 Other forms of acute ischemic heart disease; I12.9 Hypertensive chronic kidney disease with stage 1 through stage 4 chronic kidney disease, or unspecified chronic kidney disease; N18.4 Chronic kidney disease, stage 4 (severe); E11.22 Type 2 diabetes mellitus with diabetic chronic kidney disease; K44.9 Diaphragmatic hernia without obstruction or gangrene; K31.7 Polyp of stomach and duodenum; D12.2 Benign neoplasm of ascending colon; D12.3 Benign neoplasm of transverse colon; K57.50 Diverticulosis of both small and large intestine without perforation or abscess without bleeding; K64.8 Other hemorrhoids; D63.1 Anemia in chronic kidney disease; I25.10 Atherosclerotic heart disease of native coronary artery without angina pectoris; E11.51 Type 2 diabetes mellitus with diabetic peripheral angiopathy without gangrene; J44.9 Chronic obstructive pulmonary disease, unspecified; E78.5 Hyperlipidemia, unspecified; K21.9 Gastro-esophageal reflux disease without esophagitis; E66.9 Obesity, unspecified; Z68.33 Body mass index [BMI] 33.0-33.9, adult; I25.2 Old myocardial infarction; F32.9 Major depressive disorder, single episode, unspecified; Z79.4 Long term (current) use of insulin; Z95.1 Presence of aortocoronary bypass graft; Z95.5 Presence of coronary angioplasty implant and graft; Z96.652 Presence of left artificial knee joint; Z87.891 Personal history of nicotine dependence
CPT/HCPCS: 71046; 80048; 80069; 82948; 83036; 84484; 85014; 85018; 85027; 85610; 86850; 86900; 86901; 86920; 88305; 88342 TC; 93005; 99281; 99284; C9113; J1815; J7030; P9016

== ENCOUNTER 2017-11-01 13:52 | Emergency (ER) | payer OTHER, BC ==
[~2017-11-01] VITALS: Ht 177.8 cm; Wt 104.6 kg
[~2017-11-01 13:52] MED LIST changes: +MEGA BENFOTIAMINE PO; +PROCRIT40000 UNI1 SQ
[2017-11-01 15:20] LABS: HEMATOCRIT 31.7 % (38.0-50.0); HEMOGLOBIN 9.7 G/DL (12.5-16.6); MCHC 30.6 G/DL (30.0-36.0); MCV 94.9 FL (86-99); PLATELET COUNT 203 K/uL (156-360); RBC DIS.WIDTH-CV 18.1 % (11.8-14.6); RED BLOOD COUNT 3.34 M/uL (4.00-5.50); WHITE BLOOD COUNT 5.9 K/uL (4.1-10.2)
[2017-11-01 15:22] LABS: APPEARANCE CLOUDY ((CLEAR)); BILIRUBIN NEGATIVE; BLOOD SMALL; COLOR YELLOW ((YELLOW)); GLUCOSE (STRIP) NEGATIVE; KETONES NEGATIVE; LEUKOCYTES LARGE; NITRITE NEGATIVE; PROTEIN (STRIP) 100; SPECIFIC GRAVITY 1.014 (1.000-1.030); UROBILINOGEN 0.2 MG/DL (0.2-1.0)
[2017-11-01 15:36] LABS: CHLORIDE 117 mEq/L (99-109); POTASSIUM 5.1 mEq/L (3.7-5.4); SODIUM 143 mEq/L (136-147)
[2017-11-01 15:37] LABS: GLUCOSE 181 mg/dL (70-99)
[2017-11-01 15:41] LABS: CREATININE 2.2 mg/dL (0.6-1.3); GFR ESTIMATE (CALCULATED) 31 mL/min/ (58.99-99999)
[2017-11-01 15:42] LABS: UREA NITROGEN (BUN) 55 mg/dL (9-23)
[2017-11-01 15:59] LABS: EPITHELIAL CELLS 1+ /HPF; MUCUS NONE SEEN /LPF; WHITE BLOOD CELLS TNTC /HPF (0-5)
[2017-11-01 16:00] LABS: BACTERIA 1+ /HPF
[2017-11-01] MEDS ORDERED: CIPRO500 MG PO (16:50)
[2017-11-01] MEDS ORDERED: FLOMAX0.4 MG PO (17:15)
[2017-11-01 17:23] VITALS: BP 121/48
== END 2017-11-01 17:42 | disposition home or self-care (01) ==
LOC: EME 13:52
PROVIDERS: Physician Assistant
DX: R33.9 Retention of urine, unspecified (principal); R30.0 Dysuria; I25.2 Old myocardial infarction; J43.9 Emphysema, unspecified; I25.10 Atherosclerotic heart disease of native coronary artery without angina pectoris; E11.22 Type 2 diabetes mellitus with diabetic chronic kidney disease; I12.9 Hypertensive chronic kidney disease with stage 1 through stage 4 chronic kidney disease, or unspecified chronic kidney disease; N18.9 Chronic kidney disease, unspecified; Z79.4 Long term (current) use of insulin; K21.9 Gastro-esophageal reflux disease without esophagitis; Z95.5 Presence of coronary angioplasty implant and graft; D64.9 Anemia, unspecified; Z95.1 Presence of aortocoronary bypass graft; Z87.442 Personal history of urinary calculi; Z87.891 Personal history of nicotine dependence
CPT/HCPCS: 80048; 81003; 85027; 99281; 99283

== ENCOUNTER 2017-11-01 20:04 | Emergency (ER) | payer OTHER, BC ==
[~2017-11-01] VITALS: Ht 177.8 cm; Wt 104.4 kg
[~2017-11-01 20:04] MED LIST changes: +CIPRO500 MG PO
[2017-11-01 23:38] VITALS: BP 104/61
== END 2017-11-01 23:40 | disposition home or self-care (01) ==
LOC: EME 20:04
DX: T83.84XA Pain due to genitourinary prosthetic devices, implants and grafts, initial encounter (principal); I12.9 Hypertensive chronic kidney disease with stage 1 through stage 4 chronic kidney disease, or unspecified chronic kidney disease; N18.9 Chronic kidney disease, unspecified; J44.9 Chronic obstructive pulmonary disease, unspecified; E11.22 Type 2 diabetes mellitus with diabetic chronic kidney disease; K21.9 Gastro-esophageal reflux disease without esophagitis; I25.10 Atherosclerotic heart disease of native coronary artery without angina pectoris; I25.2 Old myocardial infarction; Z79.4 Long term (current) use of insulin; Z87.891 Personal history of nicotine dependence; Z95.810 Presence of automatic (implantable) cardiac defibrillator; Z95.5 Presence of coronary angioplasty implant and graft; Z95.1 Presence of aortocoronary bypass graft; Z87.440 Personal history of urinary (tract) infections; Z87.442 Personal history of urinary calculi
CPT/HCPCS: 99281; 99284